=== PATIENT | male | born 1960 | race Caucasian/White ===

== ENCOUNTER 2019-04-01 22:25 | Emergency (ER) | payer MEDICAID, MEDICARE ==
--- NOTE | 2019-04-01 23:01 | ER Document Report ---
ED Medical Screen (RME) - General Chief Complaint: ETOH Abuse Stated Complaint: ETOH Time Seen by Provider: 04/01/19 22:57 Mode of Arrival: Ambulatory Information source: Patient Notes: 58-year-old male patient with past medical history of hypertension alcoholism presenting to the emergency department requesting detox. Patient came from out [facility] and was dropped off at the [facility]. He states that his alcohol level was too high there. Patient reports he drank a 12 pack of beer today. Patient denies any suicidal homicidal ideations, denies any drug use. Exam: Patient calm, cooperative, answering all questions appropriately. I have greeted and performed a rapid initial assessment of this patient. A comprehensive ED assessment and evaluation of the patient, analysis of test results and completion of the medical decision making process will be conducted by additional ED providers. I have specifically instructed the patient or family members with the patient to immediately return to any nursing staff should anything change in the patient's condition or with their chief complaint. This medical record was dictated with voice recognizing software. There may be grammatical, syntax errors that are unintended. TRAVEL OUTSIDE OF THE [place] IN LAST 30 DAYS: No Past Medical History - Social History Frequency of alcohol use: Heavy Physical Exam - Vital signs Vitals: Temp Pulse Resp BP Pulse Ox 98.6 F 75 18 134/79 H 95 04/01/19 22:33 04/01/19 22:33 04/01/19 22:33 04/01/19 22:33 04/01/19 22:33 Course - Vital Signs Vital signs: Temp Pulse Resp BP Pulse Ox 98.6 F 75 18 134/79 H 95 04/01/19 22:56 04/01/19 22:56 04/01/19 22:56 04/01/19 22:56 04/01/19 22:56
--- NOTE | 2019-04-02 02:58 | ER Document Report ---
ED General - General Chief Complaint: ETOH Abuse Stated Complaint: ETOH Time Seen by Provider: 04/01/19 22:57 Mode of Arrival: Ambulatory TRAVEL OUTSIDE OF THE [place] IN LAST 30 DAYS: No - HPI Patient complains to provider of: help with alcohol abuse Onset: Just prior to arrival Onset/Duration: Gradual Quality of pain: No pain Severity: Severe Pain Level: Denies Associated symptoms: None Exacerbated by: Denies Relieved by: Denies Similar symptoms previously: Yes Recently seen / treated by doctor: No Notes: 58 year old male with a history of alcohol abuse and HTN (not on any medications) here because he would like alcohol detox. The patient had a triage blood alcohol level of 256. The patient has no other complaints at this time. The patient has no SI or HI. The patient tells me he has not gone into alcohol withdrawal in the past. Past Medical History - General Information source: Patient - Social History Smoking Status: Current Every Day Smoker Frequency of alcohol use: Heavy Drug Abuse: None Family History: Reviewed & Not Pertinent Patient has suicidal ideation: No Patient has homicidal ideation: No - Past Medical History Cardiac Medical History: Reports: Hx Hypertension Pulmonary Medical History: Reports: None EENT Medical History: Reports: None Neurological Medical History: Reports: None Endocrine Medical History: Reports: None Renal/ Medical History: Reports: None Malignancy Medical History: Reports None GI Medical History: Reports: None Skin Medical History: Reports None Psychiatric Medical History: Reports: None Traumatic Medical History: Reports: None Infectious Medical History: Reports: None Past Surgical History: Reports: None Review of Systems - Review of Systems Constitutional: No symptoms reported EENT: No symptoms reported Cardiovascular: No symptoms reported Respiratory: No symptoms reported Gastrointestinal: No symptoms reported Genitourinary: No symptoms reported Male Genitourinary: No symptoms reported Musculoskeletal: No symptoms reported Skin: No symptoms reported Hematologic/Lymphatic: No symptoms reported Neurological/Psychological: Other - alcohol abuse Physical Exam - Vital signs Vitals: Temp Pulse Resp BP Pulse Ox 98.6 F 75 18 134/79 H 95 04/01/19 22:33 04/01/19 22:33 04/01/19 22:33 04/01/19 22:33 04/01/19 22:33 - Notes Notes: GENERAL: Poorly groomed, intoxicated, well-nourished and in no acute distress. HEAD: Atraumatic, normocephalic. EYES: Pupils equal round and reactive to light, extraocular movements intact, sclera anicteric, conjunctiva are normal. ENT: Nares patent, oropharynx clear without exudates. Moist mucous membranes. NECK: Normal range of motion, supple without lymphadenopathy or JVD. LUNGS: Breath sounds clear to auscultation bilaterally and equal. No wheezes rales or rhonchi. HEART: Regular rate and rhythm without murmurs, rubs or gallops. ABDOMEN: Soft, nontender, normoactive bowel sounds. No guarding, no rebound. No masses appreciated. EXTREMITIES: Normal range of motion, no pitting or edema. No clubbing or cyanosis. NEUROLOGICAL: Cranial nerves II through XII grossly intact. Normal speech, normal gait. PSYCH: Normal mood, normal affect. SKIN: Warm, Dry, normal turgor, no rashes or lesions noted. Course - Re-evaluation Re-evalutation: 04/02/19 03:51 The patient was held in the ER until his blood alcohol level was less then 200. He was then discharged to the local alcohol detox center. Patient is not showing signs of withdrawal at this time. - Vital Signs Vital signs: Temp Pulse Resp BP Pulse Ox 98.6 F 75 18 134/79 H 95 04/01/19 22:56 04/01/19 22:56 04/01/19 22:56 04/01/19 22:56 04/01/19 22:56 - EKG Interpretation by Or EKG shows normal: Sinus rhythm, Intervals - normal Rate: Normal Rhythm: NSR Discharge - Discharge Clinical Impression: Alcohol abuse Condition: Stable Disposition: REHAB FACILITY Instructions: Chronic Alcoholism ([facility]) Additional Instructions: Go directly to the Alcohol Detox Center.
[2019-04-02 04:02] VITALS: BP 138/87
--- NOTE | 2019-04-04 12:06 | EKG REPORT ---
SEVERITY:- BORDERLINE ECG - SINUS RHYTHM PROBABLE LEFT ATRIAL ABNORMALITY : Confirmed by: Elsy Hernandez MD 04-Apr-2019 12:06:11
== END 2019-04-02 03:59 ==
LOC: ER 22:25
DX: F10.10 Alcohol abuse, uncomplicated (principal); Y90.8 Blood alcohol level of 240 mg/100 ml or more; I10 Essential (primary) hypertension; F17.200 Nicotine dependence, unspecified, uncomplicated
CPT/HCPCS: 36415; 80307; 93005; 93010; 99284